=== PATIENT | male | born 1930 | race Caucasian/White ===

== ENCOUNTER 2017-12-15 05:16 | Inpatient (IN) | payer MEDICARE ==
[~2017-12-15] VITALS: Ht 165.1 cm; Wt 103.3 kg
[~2017-12-15 05:16] MED LIST: ACET500 PO; ALUM-MAG HYDRO360 ML PO; ANDROGEL TOP; ASPI81CH PO; ASPI81EC; ASPI81EC PO; ATOR80 PO; AZIT250 PO; BENTYL; BENTYL20 MG PO; BGALA3.3 PO; BUPR150ER PO; BUPR150T2 PO; CALMAGZIN PO; CARV6.25 PO; CHOL10002 PO; CLOP75 PO; CYAN1000I IM; DESL5; DICY20 PO; DOCU100 PO; DOMPERIDONE; DOMPERIDONE PO; DOXA4; DOXA4 PO; DOXY100 PO; DULO30 PO; ESOM20; ETOD500 PO; EXELON TOP; Exelon TOP; FAMO40 PO; FLONASE ALLERG9.9 ML NS; FLUV40; FOLI1 PO; HYDGUAL120 PO; Isosorbide Mono60 MG PO; KAOPECTATE PO; KETO15TC; KETO15TC TP; LEVE500 PO; LORA.5 PO; LOSA50; LOSA50 PO; LOTE.2OPSU; METF500 PO; METF500C PO; MOMENI; MORP15ER PO; MORP30 PO; MORP30ER PO; MS Contin15 MG PO; MULVITMIND PO; Milk Of Ma400 MG/5 M PO; NITR.4SL SL; Nitrostat0.4 MG SL; OMEP20ER PO; OMEP40CA12 PO; OXYACE5T; Omeprazole20 M1 PO; PHENY100ER PO; PHENY125EA PO; POTA8; POTA8 PO; PRED1SU; PRED1SU OS; Pepcid40 MG PO; RAME8 PO; RANO500T PO; RIVA1.5 TOP; SERT100 PO; SIMV40 PO; SUCR1 PO; THIA100 PO; TORS10 PO; TORSE20; VITB2 PO
[2017-12-15 05:30] LABS: Calcium, Ionized (POC) 1.09 mmol/L (1.10-1.46); Chloride (POC) 102 mmol/L (98-108); Creatinine (POC) 0.7 mg/dL (0.8-1.3); Glucose (ISTAT POC) 116 mg/dL (70-99); Hemoglobin (POC) 12.6 g/dL (13.5-17.5); Potassium (POC) 4.4 mmol/L (3.5-5.5); Sodium (POC) 138 mmol/L (135-148); Total CO2 (POC) 27 mmol/L (21-32)
[2017-12-15] MEDS ORDERED: ATOR80 PO (05:36)
[2017-12-15] MEDS ORDERED: ASPI81CH PO (05:36)
[2017-12-15] MEDS ORDERED: ACET500 PO (05:36)
[2017-12-15] MEDS ORDERED: ZOSTRIX56.6 GM TOP (05:37)
[2017-12-15] MEDS ORDERED: Carvedilol6.25 MG PO (05:37)
[2017-12-15] MEDS ORDERED: CLOP75 PO (05:38)
[2017-12-15] MEDS ORDERED: FAMO40 PO (05:38)
[2017-12-15] MEDS ORDERED: CHOL10002 PO (05:38)
[2017-12-15] MEDS ORDERED: Dairy Relie3000 UNIT PO (05:39)
[2017-12-15] MEDS ORDERED: ISOMON20 PO (05:39)
[2017-12-15] MEDS ORDERED: Morphine Sulfat15 MG PO (05:40)
[2017-12-15] MEDS ORDERED: LEVE500 PO (05:40)
[2017-12-15] MEDS ORDERED: SERT50 PO (05:41)
[2017-12-15] MEDS ORDERED: PANT40 PO (05:41)
[2017-12-15] MEDS ORDERED: RIBOFLAVIN PO (05:41)
[2017-12-15] MEDS ORDERED: STRIVERDI RESPIM4 GM INH (05:41)
[2017-12-15] MEDS ORDERED: Artificial Tear15 ML BOTHEYES (05:42)
[2017-12-15] MEDS ORDERED: SIME80CH PO (05:42)
[2017-12-15] MEDS ORDERED: NITR.4SL SL (05:43)
[2017-12-15 05:47] LABS: BASOPHILS ABSOLUTE AUTO 0.02 K/mm3 (0.00-0.23); BASOPHILS PERCENT AUTO 0 % (0-2); EOSINOPHILS ABSOLUTE AUTO 0.16 K/mm3 (0.00-0.68); EOSINOPHILS PERCENT AUTO 2 % (0-6); Hematocrit 36.8 % (37.0-53.0); Hemoglobin 12.3 g/dL (13.5-17.5); IMMATURE GRAN ABSOLUTE AUTO 0.02 K/mm3 (0.00-0.10); IMMATURE GRAN PERCENT AUTO 0 % (0-1); LYMPHOCYTES ABSOLUTE AUTO 1.73 K/mm3 (0.84-5.20); LYMPHOCYTES PERCENT AUTO 21 % (21-46); MONOCYTES ABSOLUTE AUTO 0.85 K/mm3 (0.16-1.47); MONOCYTES PERCENT AUTO 10 % (4-13); Mean Corpuscular HGB 32.1 pg (26.0-34.0); Mean Corpuscular HGB Conc 33.4 g/dL (31.5-36.5); Mean Corpuscular Volume 96 fL (80-100); Mean Platelet Volume 11.7 fL (9.1-12.4); NEUTROPHILS ABSOLUTE AUTO 5.37 K/mm3 (1.96-9.15); NEUTROPHILS PERCENT AUTO 66 % (41-73); Platelet Count 165 K/mm3 (150-400); RDW Coefficient Variation 13.1 % (11.7-14.2); RDW Standard Deviation 46.1 fL (35.1-46.3); Red Blood Cell Count 3.83 M/mm3 (4.30-5.90); White Blood Cell Count 8.15 K/mm3 (4.00-11.30)
[2017-12-15 05:55] LABS: International Normalized Ratio 1.03; Prothrombin Time Results 10.7 Sec (9.7-11.5)
[2017-12-15 06:05] LABS: Alanine Aminotransfer (ALT/SGP 33 U/L (12-78); Albumin, Blood 3.1 g/dL (3.4-5.0); Albumin/Globulin Ratio 0.9 (0.8-1.8); Alk Phos 73 U/L (50-136); Anion Gap 6 mmol/L (6-16); Aspartate Aminotrans (AST/SGOT 95 U/L (12-37); Bilirubin, Total 0.6 mg/dL (0.1-1.0); Blood Urea Nitrogen 18 mg/dL (8-24); CO2, Blood 28 mmol/L (21-32); Calcium, Blood 8.6 mg/dL (8.5-10.1); Chloride, Blood 106 mmol/L (98-108); Creatinine, Blood 0.64 mg/dL (0.60-1.20); Globulin, Blood 3.6 g/dL (2.2-4.0); Glomerular Filtration Rate >60 (60-); Glucose, Blood 107 mg/dL (70-99); Potassium, Blood 4.9 mmol/L (3.5-5.5); Sodium, Blood 140 mmol/L (136-145); Total Protein, Blood 6.7 g/dL (6.4-8.2)
[2017-12-15 14:38] LABS: Troponin I 6.52 ng/mL (0.000-0.040)
[2017-12-15 21:37] LABS: Troponin I 7.31 ng/mL (0.000-0.040)
[2017-12-16 04:17] LABS: Hematocrit 36.5 % (37.0-53.0); Hemoglobin 12.4 g/dL (13.5-17.5); Mean Corpuscular HGB 32.1 pg (26.0-34.0); Mean Corpuscular Volume 95 fL (80-100); Mean Platelet Volume 11.7 fL (9.1-12.4); Platelet Count 150 K/mm3 (150-400); RDW Standard Deviation 44.7 fL (35.1-46.3); Red Blood Cell Count 3.86 M/mm3 (4.30-5.90); White Blood Cell Count 7.91 K/mm3 (4.00-11.30)
[2017-12-16 04:42] LABS: Alanine Aminotransfer (ALT/SGP 28 U/L (12-78); Albumin, Blood 2.9 g/dL (3.4-5.0); Albumin/Globulin Ratio 0.9 (0.8-1.8); Alk Phos 73 U/L (50-136); Anion Gap 7 mmol/L (6-16); Aspartate Aminotrans (AST/SGOT 65 U/L (12-37); Bilirubin, Total 0.8 mg/dL (0.1-1.0); Blood Urea Nitrogen 19 mg/dL (8-24); Bun/Creatinine Ratio 27.2 (12.0-20.0); CHOL/HDL RATIO 1.6; CO2, Blood 27 mmol/L (21-32); Calcium, Blood 8.3 mg/dL (8.5-10.1); Chloride, Blood 104 mmol/L (98-108); Cholesterol 107 mg/dL (50-200); Globulin, Blood 3.4 g/dL (2.2-4.0); Glomerular Filtration Rate >60 (60-); Glucose, Blood 114 mg/dL (70-99); HDL Cholesterol 65 mg/dL (>39); LDL/HDL RATIO 0.5; Low Density Lipoprotein Chol 31 mg/dL (0-110); Potassium, Blood 4.2 mmol/L (3.5-5.5); Sodium, Blood 138 mmol/L (136-145); Total Protein, Blood 6.3 g/dL (6.4-8.2); Triglycerides 53 mg/dL (30-160); Very Low Density Lipoprot Chol 10 mg/dL (6-32)
[2017-12-19] MEDS ORDERED: MORP20L PO (10:19)
[2017-12-19] MEDS ORDERED: RANO500T PO (10:20)
== END 2017-12-19 13:45 | disposition home or self-care (01) | DRG 282 ==
LOC: ER 05:16 → PCU 05:37
PROVIDERS: Emergency Medicine; Internal Medicine
DX: I21.4 Non-ST elevation (NSTEMI) myocardial infarction (principal); I25.110 Atherosclerotic heart disease of native coronary artery with unstable angina pectoris; E11.9 Type 2 diabetes mellitus without complications; K21.9 Gastro-esophageal reflux disease without esophagitis; F32.9 Major depressive disorder, single episode, unspecified; I25.2 Old myocardial infarction; E78.5 Hyperlipidemia, unspecified; G40.909 Epilepsy, unspecified, not intractable, without status epilepticus; N40.0 Benign prostatic hyperplasia without lower urinary tract symptoms; I35.0 Nonrheumatic aortic (valve) stenosis; H04.129 Dry eye syndrome of unspecified lacrimal gland; Z66 Do not resuscitate; Z79.02 Long term (current) use of antithrombotics/antiplatelets; Z79.82 Long term (current) use of aspirin; Z79.899 Other long term (current) drug therapy; Z88.8 Allergy status to other drugs, medicaments and biological substances
CPT/HCPCS: 36415; 71045; 80047; 80053; 80061; 82550; 82947; 83036; 83880; 84484; 85014; 85025; 85027; 85610; 85730; 93005; 93010; 93306; 96374; 96375; 99285; J1644; J1650; J3010

== ENCOUNTER 2017-12-22 16:44 | Observation (INO) | payer MEDICARE ==
[~2017-12-22] VITALS: Ht 165.1 cm; Wt 95.8 kg
[~2017-12-22 16:44] MED LIST changes: +Artificial Tear15 ML BOTHEYES; +Carvedilol6.25 MG PO; +Dairy Relie3000 UNIT PO; +ISOMON20 PO; +MORP20L PO; +Morphine Sulfat15 MG PO; +PANT40 PO; +RIBOFLAVIN PO; +SERT50 PO; +SIME80CH PO; +STRIVERDI RESPIM4 GM INH; +ZOSTRIX56.6 GM TOP
[2017-12-22 17:06] LABS: BASOPHILS ABSOLUTE AUTO 0.02 K/mm3 (0.00-0.23); BASOPHILS PERCENT AUTO 0 % (0-2); EOSINOPHILS ABSOLUTE AUTO 0.06 K/mm3 (0.00-0.68); EOSINOPHILS PERCENT AUTO 1 % (0-6); Hematocrit 36.7 % (37.0-53.0); Hemoglobin 12.1 g/dL (13.5-17.5); IMMATURE GRAN ABSOLUTE AUTO 0.02 K/mm3 (0.00-0.10); IMMATURE GRAN PERCENT AUTO 0 % (0-1); LYMPHOCYTES ABSOLUTE AUTO 1.03 K/mm3 (0.84-5.20); LYMPHOCYTES PERCENT AUTO 16 % (21-46); MONOCYTES ABSOLUTE AUTO 0.85 K/mm3 (0.16-1.47); MONOCYTES PERCENT AUTO 13 % (4-13); Mean Corpuscular HGB 31.7 pg (26.0-34.0); Mean Corpuscular Volume 96 fL (80-100); Mean Platelet Volume 11.6 fL (9.1-12.4); NEUTROPHILS ABSOLUTE AUTO 4.65 K/mm3 (1.96-9.15); NEUTROPHILS PERCENT AUTO 70 % (41-73); Platelet Count 181 K/mm3 (150-400); RDW Coefficient Variation 13.2 % (11.7-14.2); RDW Standard Deviation 46.3 fL (35.1-46.3); Red Blood Cell Count 3.82 M/mm3 (4.30-5.90); White Blood Cell Count 6.63 K/mm3 (4.00-11.30)
[2017-12-22 17:35] LABS: Alanine Aminotransfer (ALT/SGP 35 U/L (12-78); Albumin, Blood 3.2 g/dL (3.4-5.0); Albumin/Globulin Ratio 0.9 (0.8-1.8); Alk Phos 82 U/L (50-136); Anion Gap 7 mmol/L (6-16); Aspartate Aminotrans (AST/SGOT 39 U/L (12-37); Bilirubin, Total 0.4 mg/dL (0.1-1.0); Blood Urea Nitrogen 26 mg/dL (8-24); Bun/Creatinine Ratio 28.9 (12.0-20.0); CO2, Blood 26 mmol/L (21-32); CPK Creatine Kinase 150 U/L (39-308); Calcium, Blood 8.7 mg/dL (8.5-10.1); Chloride, Blood 108 mmol/L (98-108); Globulin, Blood 3.7 g/dL (2.2-4.0); Glomerular Filtration Rate >60 (60-); Glucose, Blood 190 mg/dL (70-99); Magnesium, Blood 2.5 mg/dL (1.6-2.4); Potassium, Blood 4.2 mmol/L (3.5-5.5); Sodium, Blood 141 mmol/L (136-145); Total Protein, Blood 6.9 g/dL (6.4-8.2)
[2017-12-22 17:37] LABS: Source, Urine Catheter
[2017-12-22 17:42] LABS: Appearance, Urine Clear (Clear); Blood, Urine Neg (Neg); Color, Urine Amber (P-Yellow); Glucose Qualitative, Urine Neg (Neg); Ketones, Urine 1+ (Neg); Leukocyte Esterase, Urine 2+ (Neg); Nitrite, Urine Pos (Neg); Protein, Urine 2+ (Neg); Urobilinogen, Urine 1+ (Normal)
[2017-12-22 17:49] LABS: Bilirubin, Urine 1+ (Neg)
[2017-12-22 17:51] LABS: Bacteria Mod /hpf; Red Blood Cells, Urine 0-2 /hpf (0-2); Squamous Epithelial Cells Few /hpf (Few)
[2017-12-23] MEDS ORDERED: ATROPINE 0.01%-10 ML LEFTEYE (02:33)
[2017-12-23] MEDS ORDERED: METAMUCIL POWD174 GM PO (03:29)
== END 2017-12-23 16:06 | disposition home or self-care (01) ==
LOC: ER 16:44 → MEDS 16:45 → ENPENDDIS 12-23 09:48 → MEDS 12-23 16:06
PROVIDERS: Emergency Medicine
DX: R47.81 Slurred speech (principal); G40.909 Epilepsy, unspecified, not intractable, without status epilepticus; I35.0 Nonrheumatic aortic (valve) stenosis; I25.10 Atherosclerotic heart disease of native coronary artery without angina pectoris; I11.0 Hypertensive heart disease with heart failure; I50.40 Unspecified combined systolic (congestive) and diastolic (congestive) heart failure; I21.4 Non-ST elevation (NSTEMI) myocardial infarction; E11.9 Type 2 diabetes mellitus without complications; E66.9 Obesity, unspecified; E78.5 Hyperlipidemia, unspecified; J44.9 Chronic obstructive pulmonary disease, unspecified; F32.9 Major depressive disorder, single episode, unspecified; Z79.02 Long term (current) use of antithrombotics/antiplatelets; Z79.899 Other long term (current) drug therapy; Z79.01 Long term (current) use of anticoagulants; Z68.36 Body mass index [BMI] 36.0-36.9, adult
CPT/HCPCS: 36415; 51701; 70450; 71045; 80053; 81001; 82550; 82947; 83605; 83735; 84484; 85025; 87086; 92610; 93005; 93010; 96372; 97110; 97162; 99285; G0378; G8978; G8979; G8996; G8997; G8998; J1650